=== PATIENT | female | born 1960 | race Caucasian/White ===

== ENCOUNTER → 2016-12-03 | Outpatient (CLI) | payer OTHER ==
--- NOTE | 2016-12-04 08:04 | KCIC ---
PROCEDURE MRI cervical spine without contrast. HISTORY Cervical disc disorder, left radiculopathy TECHNIQUE Sagittal and axial T2, sagittal STIR, and sagittal T1 weighted images were acquired of the cervical spine. Contrast: COMPARISON None FINDINGS There is motion degradation. Cervical vertebral body stature is maintained. Cervical cord caliber is within normal limits without obvious focal signal abnormality, limited evaluation for subtle signal change due to motion. There is negligible anterior spondylolisthesis at C6-7, T1-T2, and T2-3. There is moderate to severe degenerative disc disease C5-C6, minimally at C6-7, C3-4, C4-5. There is also fairly advanced degenerative disc disease at T2-3, to a lesser degree at T1-2. There is mild levoscoliosis greater inferiorly of the cervical spine. There is some edema about the left C5-C6 facet articulations more likely to be reactive/degenerative in etiology. C2-3: Spinal canal and neural foramina are adequate. There is very shallow posterior central protrusion. C3-4: There is minimal disc osteophyte complex and bulge. Spinal canal and neural foramina are adequate. C4-5: There is minimal disc osteophyte complex and bulge. Spinal canal is adequate. Neural foramina are adequate. C5-C6: There is minimal disc osteophyte complex, superimposed shallow bulge/protrusion, mild indentation upon the ventral thecal sac. Central canal is adequate 11 millimeters. There is bilateral facet degenerative change, also minimal left uncovertebral degenerative change. There is suspected mild to moderate neural foramina compromise although poorly characterized due to motion artifact. C6-7: There is posterior protrusion greatest centrally. Central canal is adequate on the order of 11 millimeters. Neural foramina are adequate. C7-T1: Spinal canal and neural foramina are adequate. T1-T2: This level was not included on the axial images. There is partial uncovering of the posterior aspect of the disc, superimposed extrusion extending slightly below the intervertebral disc space more eccentric to left lateral recess. Central canal is borderline 10 millimeters, likely at least mild lateral recess stenosis. Neural foramina are not significantly narrowed. T2-3: This level was not included on the axial images. There is shallow posterior protrusion. Spinal canal is not significantly narrowed. IMPRESSION 1. There is moderate to severe degenerative disc disease at C5-C6 and T2-3, minimally C3-4, C4-5, C6-7, and T1-2. 2. There is no significant cervical spinal stenosis, likely at least mild lateral recess stenosis at T1-2 by extrusion. 3. There is likely mild to moderate neural foramina compromise bilaterally at C5-C6 although poorly characterized due to motion degradation. 4. There is multilevel mild abnormal alignment as stated, multilevel facet degenerative change. There is some edema about the left C5-C6 facet articulations, more likely to be reactive/degenerative in etiology. There is cervical levoscoliosis. Electronically signed by: Krishan Stewart MD (Dec 04, 2016 08:03:01)
== END | disposition home or self-care (01) ==
LOC: KCIC MRI 17:34
PROVIDERS: ATTEND Internal Medicine
DX: M50.122 Cervical disc disorder at C5-C6 level with radiculopathy (principal)
CPT/HCPCS: 72141